=== PATIENT | male | born 1960 | race Caucasian/White ===

== ENCOUNTER 2020-02-05 09:16 | Emergency (ER) | payer OTHER ==
--- NOTE | 2020-02-05 09:31 | EDM.PDOC ---
ED HPI GENERAL MEDICAL PROBLEM - General Chief Complaint: Cardiovascular Problem Stated Complaint: CHEST PAIN Time Seen by Provider: 02/05/20 09:31 - History of Present Illness INITIAL COMMENTS - FREE TEXT/NARRATIVE: 59-year old male presents to the emergency room with chest pain. He notices this pain when he wakes up he usually gets up around midnight or 1 AM gets up drinks coffee. The coffee does not make it worse he is noticed this for the last 5 mornings. The pain is left-sided chest under his left breast. The pain does not radiate any place. Patient has no history of coronary artery disease the patient is wondering if it is related to his developing kyphosis. Patient has not seen his regular physician in quite some time he [facility] and if he needs some it usually goes through 1 of the nurses. The patient does not have a cough and he has not noticed any fevers however at times with this pain is noticed some shortness of breath. This pain and shortness of breath does not get worse with activity. He wakes up with it and then gradually gets better as he gets ready for work. Left Chest Pain Score (Numeric/FACES): 1 - Related Data Allergies Allergy/AdvReac Type Severity Reaction Status Date / Time No Known Allergies Allergy Verified 02/05/20 09:32 Home Meds: Home Meds Alendronate Sodium 70 mg PO WEEKLY 02/05/20 [History] Finasteride 5 mg PO DAILY 02/05/20 [History] atorvaSTATin [Lipitor] 10 mg PO BEDTIME 02/05/20 [History] ED ROS GENERAL - Review of Systems Review Of Systems: See Below Constitutional: Reports: No Symptoms HEENT: Reports: No Symptoms Respiratory: Reports: Shortness of Breath (Patient has difficulty describing this he does not have a cough). Denies: Cough, Sputum Cardiovascular: Reports: Chest Pain. Denies: Dyspnea on Exertion, Edema Endocrine: Reports: No Symptoms GI/Abdominal: Reports: No Symptoms : Reports: No Symptoms Musculoskeletal: Reports: Other (He has some degree of kyphosis as he lost an inch last year.) Skin: Reports: No Symptoms Neurological: Reports: No Symptoms Psychiatric: Reports: No Symptoms ED EXAM, GENERAL - Physical Exam Exam: See Below Exam Limited By: No Limitations General Appearance: Alert, No Apparent Distress Ears: Normal External Exam, Normal Canal, Hearing Grossly Normal, Normal TMs Nose: Normal Inspection, Normal Mucosa, No Blood Throat/Mouth: Normal Inspection, Normal Lips, Normal Teeth, Normal Gums, Normal Oropharynx, Normal Voice, No Airway Compromise Head: Atraumatic, Normocephalic Neck: Normal Inspection, Supple, Non-Tender, Full Range of Motion. No: Lymphadenopathy (L), Lymphadenopathy (R) Respiratory/Chest: No Respiratory Distress, Lungs Clear, Normal Breath Sounds Cardiovascular: Normal Peripheral Pulses, Regular Rate, Rhythm, No Edema, No JVD , No Murmur GI/Abdominal: Normal Bowel Sounds, Soft, Non-Tender Back Exam: Normal Inspection, Other (Sick kyphosis noted). No: CVA Tenderness ( L), CVA Tenderness (R) Neurological: Alert, Oriented, Normal Cognition Psychiatric: Normal Affect, Normal Mood EKG INTERPRETATION EKG Date: 02/05/20 Rhythm: NSR [place]: Normal P-Wave: Present QRS: Other (More suggestive of LVH borderline Q in lead III) ST-T: Other (None specific nondiagnostic changes probably more related to the LVH) Comparison: NA - No Prior EKG Course - Vital Signs Last Recorded V/S: Last Vital Signs Temp 36.3 C 02/05/20 09:27 Pulse 68 02/05/20 09:27 Resp 16 02/05/20 09:27 BP 167/89 H 02/05/20 09:27 Pulse Ox 100 02/05/20 09:27 - Orders/Labs/Meds Orders: Active Orders 24 hr Category Date Time Status EKG Documentation Completion [RC] ASDIRECTED Care 02/05/20 09:52 Active EKG 12 Lead [EK] Stat Ther 02/05/20 09:52 Ordered Labs: Laboratory Tests 02/05/20 02/05/20 02/05/20 Range/Units 09:30 09:30 09:30 WBC 7.78 (4.23-9.07) K/mm3 RBC 4.94 (4.63-6.08) M/mm3 Hgb 16.0 (13.7-17.5) gm/dl Hct 47.7 (40.1-51.0) % MCV 96.6 H (79.0-92.2) fl MCH 32.4 H (25.7-32.2) pg MCHC 33.5 (32.2-35.5) g/dl RDW Std Deviation 43.6 (35.1-43.9) fL Plt Count 191 (163-337) K/mm3 MPV 9.9 (9.4-12.3) fl Neut % (Auto) 55.2 (34.0-67.9) % Lymph % (Auto) 32.0 (21.8-53.1) % [place] % (Auto) 8.6 (5.3-12.2) % Eos % (Auto) 3.1 (0.8-7.0) Baso % (Auto) 0.8 (0.1-1.2) % Neut # (Auto) 4.30 (1.78-5.38) K/mm3 Lymph # (Auto) 2.49 (1.32-3.57) K/mm3 [place] # (Auto) 0.67 (0.30-0.82) K/mm3 Eos # (Auto) 0.24 (0.04-0.54) K/mm3 Baso # (Auto) 0.06 (0.01-0.08) K/mm3 PT 10.4 (9.7-12.0) SECONDS INR 0.95 APTT 28 (22-31) SECONDS Sodium 142 (136-145) mEq/L Potassium 3.5 (3.5-5.1) mEq/L Chloride 105 (98-107) mEq/L Carbon Dioxide 28 (21-32) mEq/L Anion Gap 12.5 (5-15) BUN 16 (7-18) mg/dL Creatinine 0.8 (0.7-1.3) mg/dL Est Cr Clr Drug Dosing 90.21 mL/min Estimated GFR (MDRD) > 60 (>60) mL/min BUN/Creatinine Ratio 20.0 H (14-18) Glucose 112 (80-115) mg/dL Calcium 9.4 (8.5-10.1) mg/dL Ferritin (26-388) ng/ml Total Bilirubin 0.6 (0.2-1.0) mg/dL AST 24 (15-37) U/L ALT 32 (16-63) U/L Alkaline Phosphatase 50 (46-116) U/L Troponin I < 0.017 (0.00-0.056) ng/mL Total Protein 7.4 (6.4-8.2) g/dl Albumin 4.0 (3.4-5.0) g/dl Globulin 3.4 gm/dL Albumin/Globulin Ratio 1.2 (1-2) 02/05/20 Range/Units 09:30 WBC (4.23-9.07) K/mm3 RBC (4.63-6.08) M/mm3 Hgb (13.7-17.5) gm/dl Hct (40.1-51.0) % MCV (79.0-92.2) fl MCH (25.7-32.2) pg MCHC (32.2-35.5) g/dl RDW Std Deviation (35.1-43.9) fL Plt Count (163-337) K/mm3 MPV (9.4-12.3) fl Neut % (Auto) (34.0-67.9) % Lymph % (Auto) (21.8-53.1) % [place] % (Auto) (5.3-12.2) % Eos % (Auto) (0.8-7.0) Baso % (Auto) (0.1-1.2) % Neut # (Auto) (1.78-5.38) K/mm3 Lymph # (Auto) (1.32-3.57) K/mm3 [place] # (Auto) (0.30-0.82) K/mm3 Eos # (Auto) (0.04-0.54) K/mm3 Baso # (Auto) (0.01-0.08) K/mm3 PT (9.7-12.0) SECONDS INR APTT (22-31) SECONDS Sodium (136-145) mEq/L Potassium (3.5-5.1) mEq/L Chloride (98-107) mEq/L Carbon Dioxide (21-32) mEq/L Anion Gap (5-15) BUN (7-18) mg/dL Creatinine (0.7-1.3) mg/dL Est Cr Clr Drug Dosing mL/min Estimated GFR (MDRD) (>60) mL/min BUN/Creatinine Ratio (14-18) Glucose (80-115) mg/dL Calcium (8.5-10.1) mg/dL Ferritin 188 (26-388) ng/ml Total Bilirubin (0.2-1.0) mg/dL AST (15-37) U/L ALT (16-63) U/L Alkaline Phosphatase (46-116) U/L Troponin I (0.00-0.056) ng/mL Total Protein (6.4-8.2) g/dl Albumin (3.4-5.0) g/dl Globulin gm/dL Albumin/Globulin Ratio (1-2) - Re-Assessments/Exams Free Text/Narrative Re-Assessment/Exam: 02/05/20 11:33 His lab and x-ray are nondiagnostic he is offered second troponin the patient would like to hold off on this. Which I think is reasonable.. The patient is on osteoporosis treatment they can cause some stomach trouble but that has not bothered him for a while he has been on this for a couple of years. It sounds like he eats dinner just before going to bed which can cause reflux. We have discussed waiting for hours after he eats before going to bed and he will work with this. Raising the head of his bed is not practical. We will start him on famotidine. He needs to follow-up in the [facility] and if his condition does not resolve with this therapy consideration should be given to provocative cardiac stress testing. Departure - Departure Time of Disposition: 11:37 Disposition: Home, Self-Care 01 Clinical Impression: Chest pain, Gastroesophageal reflux Referrals: Lee Ann Ham MD [Primary Care Provider] - Forms: ED Department Discharge Additional Instructions: Return to the emergency room with any questions problems or worsening symptoms. Start famotidine, this is the generic for Pepcid. Take 20 mg twice daily for a week and then decrease to once daily. Follow-up with the [facility] in 1 week. Discuss how you are doing and discuss if cardiac stress testing would be beneficial. Sepsis Event Note - Focused Exam Vital Signs: Vital Signs Temp Pulse Resp BP Pulse Ox 02/05/20 09:27 36.3 C 68 16 167/89 H 100 Date Exam was Performed: 02/05/20 Time Exam was Performed: 11:33 - My Orders Last 24 Hours: My Active Orders 02/05/20 09:52 EKG Documentation Completion [RC] ASDIRECTED EKG 12 Lead [EK] Stat - Assessment/Plan Last 24 Hours: My Active Orders 02/05/20 09:52 EKG Documentation Completion [RC] ASDIRECTED EKG 12 Lead [EK] Stat
== END 2020-02-05 11:57 | disposition home or self-care (01) ==
LOC: JD.ED 09:16
DX: K21.9 Gastro-esophageal reflux disease without esophagitis (principal)
CPT/HCPCS: 36415; 80053; 82728; 84484; 85025; 85610; 85730; 93005; 93010; 99283; 99285-25

== ENCOUNTER 2020-03-31 08:40 | Emergency (ER) | payer OTHER ==
[2020-03-31] MEDS ORDERED: HYDROmorphone 1 MG/ML Syringe IM ONE (08:58)
[2020-03-31] MEDS ORDERED: Promethazine 25 MG/ML SDV IM ONE (08:59)
--- NOTE | 2020-03-31 09:04 | EDM.PDOC ---
ED HPI GENERAL MEDICAL PROBLEM - General Chief Complaint: Back Pain or Injury Stated Complaint: BACK PAIN Time Seen by Provider: 03/31/20 08:55 Source of Information: Reports: Patient History Limitations: Reports: No Limitations - History of Present Illness INITIAL COMMENTS - FREE TEXT/NARRATIVE: 60-year-old male presents to the ED indicating that he had fallen down a flight of stairs in his outside porch yesterday. Landed hard on his left lower ribs knocking the wind out of him. States he has chronic low back pain problems due to scoliosis and degenerative joint disease. This morning his barely able to get out of bed. It hurts to move cough deep breathe or sit. Marked difficulty lying down and then getting back up. No problems with his bowel or bladder. Patient denies hitting his head or injuring his neck. He has skinned up a little bit on his elbows and palms of hands. Onset: Sudden Onset Date: 03/30/20 Onset Time: 09:00 Duration: Hour(s):, Getting Worse Location: Reports: Back Quality: Reports: Ache (Lower back particular area at the thoracolumbar junction area on the left side.), Sharp (Deep breathing.), Stabbing, Throbbing Severity: Severe (The 10) Improves with: Reports: Rest (Landing on place and shallow breathing) Worsens with: Reports: Movement (Movement such as walking or sitting makes the pain much worse. Marked difficulty getting up from the lying down position.) Context: Denies: Activity, Exercise, Lifting, Sick Contact, Trauma, Other Associated Symptoms: Denies: Confusion, Chest Pain Treatments ST[employer]: Reports: Other (see below) Back Pain Score (Numeric/FACES): 10 - Related Data Allergies Allergy/AdvReac Type Severity Reaction Status Date / Time No Known Allergies Allergy Verified 03/31/20 08:54 Home Meds: Home Meds Alendronate Sodium 70 mg PO WEEKLY 02/05/20 [History] Finasteride 5 mg PO DAILY 02/05/20 [History] atorvaSTATin [Lipitor] 10 mg PO BEDTIME 02/05/20 [History] oxyCODONE HCl/Acetaminophen [Percocet 5-325 mg Tablet] 1 - 2 each PO Q4H PRN # 36 tablet 03/31/20 [Rx] polyethylene glycoL 3350 [MiraLAX] 17 gm PO DAILY #1 canister 03/31/20 [Rx] Past Medical History Cardiovascular History: Reports: High Cholesterol, Hypertension Genitourinary History: Reports: Prostate Disorder Musculoskeletal History: Reports: Back Pain, Chronic Endocrine/Metabolic History: Reports: Osteoporosis Social & Family History - Living Situation & Occupation Living situation: Reports: Single Occupation: Employed (Employed [employer]) ED ROS GENERAL - Review of Systems Review Of Systems: See Below Constitutional: Denies: Fever, Chills, Malaise, Weakness, Fatigue HEENT: Reports: No Symptoms Respiratory: Reports: Shortness of Breath (Can take it to full deep breath as it makes the pain worse on his left lower back.) Cardiovascular: Reports: Blood Pressure Problem Endocrine: Reports: Fatigue, Other (Apparently has osteoporosis.) GI/Abdominal: Reports: No Symptoms : Reports: Frequency, Other (Nocturia x2) Musculoskeletal: Reports: Back Pain (Chronic low back pain states he has scoliosis.) Skin: Reports: No Symptoms Neurological: Reports: No Symptoms Psychiatric: Reports: No Symptoms Hematologic/Lymphatic: Reports: No Symptoms Immunologic: Reports: No Symptoms ED EXAM,LOWER BACK PAIN/INJURY - Physical Exam Exam: See Below Exam Limited By: No Limitations General Appearance: Alert, WD/WN, Moderate Distress, Other (And cannot lie down. He was examined in the standing position.) Throat/Mouth: Normal Inspection, Normal Lips, Normal Teeth, Normal Oropharynx Head: Atraumatic, Normocephalic Neck: Normal Inspection, Supple, Non-Tender, Full Range of Motion. No: Carotid Bruit, Lymphadenopathy (L), Lymphadenopathy (R) Respiratory/Chest: No Respiratory Distress, Lungs Clear, Normal Breath Sounds, Decreased Breath Sounds (Slight splinting on the left side.) Cardiovascular: Normal Peripheral Pulses, Regular Rate, Rhythm, No Edema GI/Abdominal: Other (Scaphoid abdomen. Very thin.) Back Exam: Normal Inspection, Paraspinal Tenderness (Spier paraspinal tenderness over the 11th and 12th ribs on the left side.), Vertebral Tenderness (Spinal process tenderness at the thoracolumbar junction. Mild paraspinal muscle spasm on the left side as compared to the right.). No: Full Range of Motion Extremities: Normal Inspection, Normal Range of Motion, Non-Tender Neurological: Alert, CN II-XII Intact, Oriented x 3. No: Normal Gait Psychiatric: Other (And a good deal of pain.) Skin Exam: Warm, Dry, Intact, Normal Color, No Rash Course - Vital Signs Last Recorded V/S: Last Vital Signs Temp 36.6 C 03/31/20 08:51 Pulse 67 03/31/20 08:51 Resp 16 03/31/20 08:51 BP 167/108 H 03/31/20 08:51 Pulse Ox 97 03/31/20 08:51 - Orders/Labs/Meds Meds: Medications Discontinued Medications Generic Name Dose Route Start Last Admin Trade Name Parul PRN Reason Stop Dose Admin Hydromorphone HCl 1 mg 03/31/20 08:58 03/31/20 09:06 Dilaudid IM 03/31/20 08:59 1 mg ONETIME ONE Administration Promethazine HCl 25 mg 03/31/20 08:59 03/31/20 09:07 Phenergan IM 03/31/20 09:00 25 mg ONETIME ONE Administration - Radiology Interpretation Free Text/Narrative:: 60-year-old male presents to the ED complaining of severe low back pain after falling down some stairs outside his home yesterday. Pain is mostly located to the 11th and 12th ribs posteriorly at the transverse processes. He also got some spinous process tenderness at the thoracolumbar junction. No abrasions or contusions in the back appreciated. Patient was examined in the standing position he does he is too tender to lie flat. Plan he will be given an IM injection of Dilaudid 1 mg with Phenergan 25 mg IM for pain relief. He will then have CT of the thoracic spine performed. - Re-Assessments/Exams Free Text/Narrative Re-Assessment/Exam: 03/31/20 10:08 CT of the thoracic spine has been completed. There is diffuse scoliosis appreciated with advanced degenerative arthritic changes at multiple levels. There is a displaced fracture noted within the posterior left 11th rib. Additional fracture of the 11th rib is seen at the costovertebral junction as well. There is also a displaced fracture noted within the posterior left 10th rib displaced fracture is noted within the posterior left ninth rib. No thoracic spine fractures appreciated. Disc space narrowing is appreciated within the upper thoracic spine as well as at the thoracolumbar junction. Mild pleural thickening seen within the posterior left chest area of rib fractures. Mild left basilar atelectasis noted. 03/31/20 10:16 discussed the findings of the CT scan with the patient. Advised that he is going to be very sore for the next 3 to 6 weeks until healing of the ribs can occur. He will approach work as tolerated. Placed on Percocet 5/ 325 mg tabs 1 or 2 every 4-6 hours as needed for pain relief--36 tablets provided. And MiraLAX 17 g once daily to prevent constipation. Departure - Departure Time of Disposition: 10:17 Disposition: Home, Self-Care 01 Condition: Fair Clinical Impression: Rib fractures Qualifiers: Encounter type: initial encounter Rib fracture type: multiple ribs Fracture type: closed Laterality: left Qualified Code(s): S22.42XA - Multiple fractures of ribs, left side, initial encounter for closed fracture - Discharge Information *PRESCRIPTION DRUG MONITORING PROGRAM REVIEWED*: Not Applicable *COPY OF PRESCRIPTION DRUG MONITORING REPORT IN PATIENT MANDO: Not Applicable Prescriptions: oxyCODONE HCl/Acetaminophen [Percocet 5-325 mg Tablet] 1 - 2 each PO Q4H PRN # 36 tablet PRN Reason: pain relief. polyethylene glycoL 3350 [MiraLAX] 17 gm PO DAILY #1 canister Instructions: Rib Fracture, [id number] Referrals: Lee Ann Ham MD [Primary Care Provider] - Forms: ED Department Discharge Additional Instructions: Evaluation in the emergency room today in regards to injuries to your left lower back and ribs sustained from a fall down stairs yesterday. Examination revealed marked tenderness of particularly rib #11 and [address] scan of the back reveals a fracture through the ninth rib and 10th rib and 2 fractures in the 11th rib 1 which is adjacent to your spine. There was no fractures in the spine bones themselves but marked advanced degenerative arthritic changes and associate with scoliosis of the thoracic spine. Treatment is time to heal. You will have marked pain and tenderness for the next 10 days. Tomorrow and the next day will be the worst. Ribs will take at least 6 weeks to heal completely. May adjust work duties as able. Suggest taking at least 4 deep breaths per hour in spite of the pain to reinflate the lower portion of your left lung to prevent pneumonia from occurring. You did receive a shot for pain relief in the ED. Cause drowsiness and you may need to go home to sleep. Treatment is pain medication Percocet 5/325 mg 1 or 2 tablets every 4-6 hours as needed for pain relief for the next 10 to 12 days. May also use Motrin 600 mg every 6 hours for pain relief. Quite often 1 Motrin 600 mg dose with 1 pain pill will do the trick in terms of relieving 70 to 80% of the pain. Suggest MiraLAX powder 17 g or 1 scoop daily to prevent constipation while you are on the stronger pain medication as it they are very prone to causing constipation. You would need to return to the hospital if you develop fever chills or increased cough as it there is a risk of pneumonia usually 10 days after injury. Follow-up with personal care physician if any further problems occur Sepsis Event Note - Evaluation Sepsis Screening Result: No Definite Risk - Focused Exam Vital Signs: Vital Signs Temp Pulse Resp BP Pulse Ox 03/31/20 08:51 36.6 C 67 16 167/108 H 97 Date Exam was Performed: 03/31/20 Time Exam was Performed: 10:16
--- NOTE | 2020-03-31 10:06 | CT ---
CT thoracic spine Technique: Multiple axial sections through the thoracic spine were obtained. Reconstructed coronal and sagittal images were obtained. Comparison: Prior MRI thoracic spine study of 06/28/16. Findings: Scoliosis is noted. Motion artifact is seen. Displaced fracture is noted within the posterior left 11th rib. Additional fracture of the 11th rib seen at the costovertebral junction. Displaced fracture noted within the posterior left 10th rib. Displaced fracture is noted within the posterior left 9th rib. No thoracic spine fracture is appreciated. Disc space narrowing is noted within the upper thoracic spine as well as at the thoracolumbar junction. Mild pleural thickening seen within the posterior left chest and area of rib fractures. Mild left basilar atelectasis is also noted. Impression: 1. Displaced left lower rib fractures involving the 9th through 11th ribs. This causes adjacent pleural thickening and left basilar atelectasis. 2. Scoliosis and degenerative change is noted within the spine. 3. No discrete thoracic spine fracture is appreciated. Diagnostic code #3 This report was dictated in MDT
== END 2020-03-31 10:31 | disposition home or self-care (01) ==
LOC: JD.ED 08:40
DX: S22.42XA Multiple fractures of ribs, left side, initial encounter for closed fracture (principal); I10 Essential (primary) hypertension; E78.00 Pure hypercholesterolemia, unspecified; Z79.899 Other long term (current) drug therapy; W10.9XXA Fall (on) (from) unspecified stairs and steps, initial encounter
CPT/HCPCS: 72128; 96372; 99284; J1170; J2550; 99283

== ENCOUNTER 2020-04-20 12:35 | Emergency (ER) | payer OTHER ==
--- NOTE | 2020-04-20 12:49 | EDM.PDOC ---
ED HPI GENERAL MEDICAL PROBLEM - General Chief Complaint: Chest Pain Stated Complaint: CHEST PAIN Time Seen by Provider: 04/20/20 12:46 Source of Information: Reports: Patient, RN Notes Reviewed History Limitations: Reports: No Limitations - History of Present Illness INITIAL COMMENTS - FREE TEXT/NARRATIVE: Patient is a 60-year-old male who presents to the ED for evaluation of his left- sided chest pain/discomfort. Patient notes that around 21 days ago, he did take quite a fall and ended up breaking some ribs on the posterior right side of his chest. He notes this was 3 fractures to ribs 9, 10 and 11. Patient does note that he does have pretty bad bones to begin with. He states everything was going well, he seemed to be healing fine, but today he waited to stoop down, for which he was sitting on one knee, and bent slightly over, and felt chest explode and now had pain to his left side, and pain up into his left shoulder, this is the opposite side from where he had the ribs broken, he states that the pain was much more intense than it was when he initially had the injury. Patient states that it does hurt to take a deep breath, but the pain has subsided substantially since coming to the ER. He notes that the pain initially started at around 11:30 AM this morning. He denies any numbness or tingling into his hands, but states that there is pain in his left shoulder at this time yet. He notes that the rib pain has been controlled with Tylenol and ibuprofen pretty well, he states that he has been very tentative about his movements, and states he has been doing little by little at work, to return to work as tolerated. Patient denies any other sick-like symptoms, fever/chills, cough/dyspnea, that he does not account to be related to the pain. Chest Pain Score (Numeric/FACES): 3 - Related Data Allergies Allergy/AdvReac Type Severity Reaction Status Date / Time No Known Allergies Allergy Verified 03/31/20 08:54 Home Meds: Home Meds Alendronate Sodium 70 mg PO WEEKLY 02/05/20 [History] Finasteride 5 mg PO DAILY 02/05/20 [History] atorvaSTATin [Lipitor] 10 mg PO BEDTIME 02/05/20 [History] polyethylene glycoL 3350 [MiraLAX] 17 gm PO DAILY #1 canister 03/31/20 [Rx] oxyCODONE HCl/Acetaminophen [Percocet 5-325 mg Tablet] 1 - 2 each PO Q4H PRN # 36 tablet 04/20/20 [Rx] Past Medical History Cardiovascular History: Reports: High Cholesterol, Hypertension Genitourinary History: Reports: Prostate Disorder Musculoskeletal History: Reports: Back Pain, Chronic Endocrine/Metabolic History: Reports: Osteoporosis Social & Family History - Living Situation & Occupation Living situation: Reports: Single Occupation: Employed (Employed [employer]) ED ROS GENERAL - Review of Systems Review Of Systems: Comprehensive ROS is negative, except as noted in HPI. ED EXAM, GENERAL - Physical Exam Exam: See Below Exam Limited By: No Limitations General Appearance: Alert, WD/WN, No Apparent Distress Eye Exam: Bilateral Eye: EOMI, Normal Inspection Ears: Normal External Exam Throat/Mouth: Normal Inspection, Normal Lips, Normal Teeth, Normal Gums, Normal Oropharynx, Normal Voice, No Airway Compromise Head: Atraumatic, Normocephalic Neck: Normal Inspection Respiratory/Chest: No Respiratory Distress, Lungs Clear, Normal Breath Sounds, No Accessory Muscle Use, Other (pt left chest is tender to Lower rib border and into posterior back) Cardiovascular: Normal Peripheral Pulses, Regular Rate, Rhythm, No Murmur Peripheral Pulses: 3+: Radial (L), Radial (R) GI/Abdominal: Normal Bowel Sounds, Soft, Non-Tender, No Distention, No Mass Back Exam: Normal Inspection Extremities: Normal Inspection, Normal Capillary Refill Neurological: Alert, Oriented, Normal Cognition, No Motor/Sensory Deficits Psychiatric: Normal Affect, Normal Mood Skin Exam: Warm, Dry, Intact, Normal Color, No Rash EKG INTERPRETATION EKG Date: 04/20/20 Time: 12:41 Rhythm: NSR Rate (Beats/Min): 68 [place]: Normal P-Wave: Present QRS: Normal ST-T: Normal QT: Normal Comparison: No Change (compared from 02/05/2020) EKG Interpretation Comments: No obvious ischemia or acute ST changes noted, reviewed by myself and Dr. Espan[place]. Course - Vital Signs Last Recorded V/S: Last Vital Signs Temp 97.2 F 04/20/20 12:44 Pulse 68 04/20/20 12:44 Resp 16 04/20/20 12:44 BP 150/88 H 04/20/20 12:44 Pulse Ox 100 04/20/20 12:44 - Orders/Labs/Meds Orders: Active Orders 24 hr Category Date Time Status EKG Documentation Completion [RC] STAT Care 04/20/20 13:01 Active Peripheral IV Care [RC] . DIRECTED Care 04/20/20 13:02 Active Peripheral IV Insertion Adult [OM.PC] Stat Oth 04/20/20 13:01 Ordered Labs: Laboratory Tests 04/20/20 04/20/20 04/20/20 Range/Units 13:13 13:13 13:13 WBC 7.79 (4.23-9.07) K/mm3 RBC 4.53 L (4.63-6.08) M/mm3 Hgb 14.7 (13.7-17.5) gm/dl Hct 44.0 (40.1-51.0) % MCV 97.1 H (79.0-92.2) fl MCH 32.5 H (25.7-32.2) pg MCHC 33.4 (32.2-35.5) g/dl RDW Std Deviation 46.0 H (35.1-43.9) fL Plt Count 230 (163-337) K/mm3 MPV 9.3 L (9.4-12.3) fl Neutrophils % (Manual) 53 (40-60) % Band Neutrophils % 0 (0-10) % Lymphocytes % (Manual) 41 H (20-40) % Atypical Lymphs % 0 % Monocytes % (Manual) 5 (2-10) % Eosinophils % (Manual) 1 (0.8-7.0) % Basophils % (Manual) 0 L (0.2-1.2) Platelet Estimate Adequate Plt Morphology Comment Normal Anisocytosis RBC Morph Comment Normal PT 10.6 (9.7-12.0) SECONDS INR 0.97 APTT 28 (22-31) SECONDS Sodium 140 (136-145) mEq/L Potassium 4.1 (3.5-5.1) mEq/L Chloride 106 (98-107) mEq/L Carbon Dioxide 25 (21-32) mEq/L Anion Gap 13.1 (5-15) BUN 20 H (7-18) mg/dL Creatinine 0.7 (0.7-1.3) mg/dL Est Cr Clr Drug Dosing 102.30 mL/min Estimated GFR (MDRD) > 60 (>60) mL/min BUN/Creatinine Ratio 28.6 H (14-18) Glucose 94 (80-115) mg/dL Calcium 9.1 (8.5-10.1) mg/dL Magnesium 1.7 L (1.8-2.4) mg/dl Total Bilirubin 0.7 (0.2-1.0) mg/dL AST 22 (15-37) U/L ALT 34 (16-63) U/L Alkaline Phosphatase 63 (46-116) U/L Troponin I < 0.017 (0.00-0.056) ng/mL NT-Pro-B Natriuret Pep (0-125) pg/mL Total Protein 7.1 (6.4-8.2) g/dl Albumin 3.8 (3.4-5.0) g/dl Globulin 3.3 gm/dL Albumin/Globulin Ratio 1.2 (1-2) /16/20 Range/Units 13:13 WBC (4.23-9.07) K/mm3 RBC (4.63-6.08) M/mm3 Hgb (13.7-17.5) gm/dl Hct (40.1-51.0) % MCV (79.0-92.2) fl MCH (25.7-32.2) pg MCHC (32.2-35.5) g/dl RDW Std Deviation (35.1-43.9) fL Plt Count (163-337) K/mm3 MPV (9.4-12.3) fl Neutrophils % (Manual) (40-60) % Band Neutrophils % (0-10) % Lymphocytes % (Manual) (20-40) % Atypical Lymphs % % Monocytes % (Manual) (2-10) % Eosinophils % (Manual) (0.8-7.0) % Basophils % (Manual) (0.2-1.2) Platelet Estimate Plt Morphology Comment Anisocytosis RBC Morph Comment PT (9.7-12.0) SECONDS INR APTT (22-31) SECONDS Sodium (136-145) mEq/L Potassium (3.5-5.1) mEq/L Chloride (98-107) mEq/L Carbon Dioxide (21-32) mEq/L Anion Gap (5-15) BUN (7-18) mg/dL Creatinine (0.7-1.3) mg/dL Est Cr Clr Drug Dosing mL/min Estimated GFR (MDRD) (>60) mL/min BUN/Creatinine Ratio (14-18) Glucose (80-115) mg/dL Calcium (8.5-10.1) mg/dL Magnesium (1.8-2.4) mg/dl Total Bilirubin (0.2-1.0) mg/dL AST (15-37) U/L ALT (16-63) U/L Alkaline Phosphatase (46-116) U/L Troponin I (0.00-0.056) ng/mL NT-Pro-B Natriuret Pep 111 (0-125) pg/mL Total Protein (6.4-8.2) g/dl Albumin (3.4-5.0) g/dl Globulin gm/dL Albumin/Globulin Ratio (1-2) Meds: Medications Discontinued Medications Generic Name Dose Route Start Last Admin Trade Name Freq PRN Reason Stop Dose Admin Sodium Chloride 10 ml 04/20/20 13:01 Saline Flush FLUSH ASDIRECTED PRN Keep Vein Open - Re-Assessments/Exams Free Text/Narrative Re-Assessment/Exam: 04/20/20 13:10 Patient presents to the ED for evaluation of left-sided chest pain/discomfort. EKG was done at time of triage, demonstrates no acute abnormalities. This was compared to an EKG done on 02/05/2020. Nonetheless due to the patient's pain being on the left side, cardiac markers will be drawn along with other labs and a chest x-ray to rule out cardiac etiology however highly suspicious for musculoskeletal pain in nature, this could be a muscle spasm in nature, as the patient is fairly tender along the left lower rib border and into the back, he states it is very hard to move from a semi-inclined position to a fully erect position. 04/20/20 14:08 Rates no obvious abnormalities. Chest x-ray does show rib fractures on the left lower chest as noted on the prior CT exam, they do appear to be slightly aggravated or displaced even a little bit from the last Departure - Departure Time of Disposition: 14:12 Disposition: Home, Self-Care 01 Condition: Good Clinical Impression: Ribs, multiple fractures Qualifiers: Encounter type: subsequent encounter Fracture type: closed Laterality: left Fracture healing: with delayed healing Qualified Code(s): S22.42XG - Multiple fractures of ribs, left side, subsequent encounter for fracture with delayed healing Prescriptions: oxyCODONE HCl/Acetaminophen [Percocet 5-325 mg Tablet] 1 - 2 each PO Q4H PRN # 36 tablet PRN Reason: pain relief. Instructions: Rib Fracture, [id number] Referrals: Lee Ann Ham MD [Primary Care Provider] - Forms: ED Department Discharge Additional Instructions: You were evaluated in the ER today for your left-sided chest pain. Laboratory evaluation was all within normal limits, EKG shows no sign of acute cardiac injury. Chest x-ray does demonstrate rib fractures within the left lower chest, as noted on your prior CT from 21 days ago. However it does appear you have reaggravated this area, causing pain and possible refracture of the area. Highly and strongly recommend that you go home, rest try to limit activities as much as possible. You were given some pain medication, the same as before, if the pain medication seems to be too strong, you may take 1/2 tablet, instead of 1 full tablet. You may also continue to take ibuprofen 600 mg every 6 hours as needed for further inflammation relief. You may want to try a hot pack or ice pack to the area to provide further pain relief. Please return to the ER at any time if your symptoms should change or worsen. Sepsis Event Note (ED) - Evaluation Sepsis Screening Result: No Definite Risk - Focused Exam Vital Signs: Vital Signs Temp Pulse Resp BP Pulse Ox 04/20/20 12:44 97.2 F 68 16 150/88 H 100 - My Orders Last 24 Hours: My Active Orders 04/20/20 13:01 EKG Documentation Completion [RC] STAT Peripheral IV Insertion Adult [OM.PC] Stat 04/20/20 13:02 Peripheral IV Care [RC] . DIRECTED - Assessment/Plan Last 24 Hours: My Active Orders 04/20/20 13:01 EKG Documentation Completion [RC] STAT Peripheral IV Insertion Adult [OM.PC] Stat 04/20/20 13:02 Peripheral IV Care [RC] . DIRECTED
[2020-04-20] MEDS ORDERED: Sodium Chloride 0.9% 10 ML Syringe FLUSH PRN (13:01)
--- NOTE | 2020-04-20 14:03 | CR ---
Chest: 2 views of the chest were obtained. Comparison: No prior chest x-ray, prior chest CT of 06/08/16. Prior thoracic spine CT of 03/31/20. Findings: Small left-sided pleural effusion is seen as well as left basilar atelectasis. Fractures are seen within the left lower chest as noted on prior CT thoracic spine exam. Fracture showed no bridging callus. Lungs otherwise are clear. No pneumothorax is seen. Heart size is normal. Tortuous thoracic aorta is seen. Scoliosis is noted within the spine with mild kyphosis. Impression: 1. Rib fractures are seen within the left lower chest as noted on prior CT thoracic spine exam. Mild left basilar atelectasis and small left-sided pleural effusion is noted. No callus is seen. 2. Other findings as noted above which are nonacute. Diagnostic code #3 Study was dictated in MDT
== END 2020-04-20 14:40 | disposition home or self-care (01) ==
LOC: JD.ED 12:35
DX: S22.42XG Multiple fractures of ribs, left side, subsequent encounter for fracture with delayed healing (principal); I10 Essential (primary) hypertension; E78.00 Pure hypercholesterolemia, unspecified; Z79.899 Other long term (current) drug therapy; W19.XXXD Unspecified fall, subsequent encounter
CPT/HCPCS: 36415; 71046; 71046-26; 80053; 83735; 83880; 84484; 85007; 85027; 85610; 85730; 93005; 93010; 99284; 99285-25

== ENCOUNTER 2024-03-22 14:37 | Emergency (ER) | payer OTHER ==
[2024-03-22 16:07] LABS: BASOPHILS ABSOLUTE AUTO 0.1 K/mm3 (0.0-0.2); BASOPHILS PERCENT AUTO 0.9 % (0.0-1.0); EOSINOPHILS ABSOLUTE AUTO 0.3 K/mm3 (0.0-0.4); HEMATOCRIT 44.6 % (42.0-52.0); HEMOGLOBIN 14.7 gm/dl (14.0-18.0); IMMATURE GRAN ABSOLUTE AUTO 0.01 K/mm3 (0.00-0.05); IMMATURE GRAN PERCENT AUTO 0.2 % (0.0-0.4); LYMPHOCYTES ABSOLUTE AUTO 2.5 K/mm3 (1.0-4.8); LYMPHOCYTES PERCENT AUTO 38.3 % (24.0-44.0); MEAN CORPUSCULAR HEMOGLOBIN 29.6 pg (28.0-32.0); MEAN CORPUSCULAR VOLUME 89.9 fl (83.0-99.0); MEAN PLATELET VOLUME 9.6 fl (9.4-12.4); MONOCYTES ABSOLUTE AUTO 0.7 K/mm3 (0.0-0.8); MONOCYTES PERCENT AUTO 10.2 % (0.0-8.0); NEUTROPHILS ABSOLUTE AUTO 2.9 K/mm3 (1.8-7.7); NEUTROPHILS PERCENT AUTO 45.4 % (41.0-71.0); PLATELET COUNT,PLT 181 K/mm3 (150-400); RED BLOOD CELL COUNT 4.96 M/mm3 (4.52-5.90)
[2024-03-22 16:40] LABS: ALBUMIN 3.7 g/dl (3.4-5.0); ANION GAP 13.1 (5-15); BILIRUBIN TOTAL 0.5 mg/dL (0.2-1.0); CALCIUM 8.9 mg/dL (8.5-10.1); EST CRCL DRUG DOSING (CG) 67.94 mL/min; POTASSIUM,K 4.1 mEq/L (3.5-5.1); PROTEIN TOTAL,TP 7.5 g/dl (6.4-8.2)
== END 2024-03-22 16:58 | disposition home or self-care (01) ==
LOC: JD.ED 14:37
DX: I73.9 Peripheral vascular disease, unspecified (principal); I10 Essential (primary) hypertension; E78.00 Pure hypercholesterolemia, unspecified; Z79.899 Other long term (current) drug therapy
CPT/HCPCS: 36415; 80053; 83880; 85025; 99283